=== PATIENT | female | born 1975 | race Caucasian/White ===

== ENCOUNTER 2016-12-02 09:57 | Emergency (ER) | payer BC ==
[~2016-12-02] VITALS: Ht 167.6 cm; Wt 98.4 kg
[~2016-12-02 09:57] MED LIST: ALBUAER INH; FLUT0.15 NAE; HYDR-5688 PO
[2016-12-02 09:59] VITALS: TEMP 37.2; Ht 167.6 cm; Wt 98.4 kg
[2016-12-02] MEDS ORDERED: SODIUM CHLORIDE 0.9% 1000ML 1,000 ML IV STA (10:20)
--- NOTE | 2016-12-02 10:27 | EMERGENCY ROOM VISIT NOTE ---
History Report prepared by Nicole: Renetta Ruiz Under the Supervision of: Dr. Aj Watkins D.O. First contact with patient: 10:11 Chief Complaint: DIZZY Stated Complaint: DIZZY, LOSS OF BALANCE, STOMACH PAINS Nursing Triage Summary: pt c/o feeling dizzy upon waking this am. went to work felt the same went to pcp sent here after they did exam and found abd to be tender on right side. denies any vomiting, feels nauseated History of Present Illness The patient is a 40 year old female who presents to the Emergency Room with complaints of persistent dizziness that began upon waking this morning. She reports around 0500 this morning when she woke up, she immediately felt off balance. She ate breakfast and drank coffee, but they provided no relief. During her shower, she lost her balance and fell and hit her shoulder. She attempted to go to work, but states she was "driving off the road" because she felt so off balance. She was able to remain at work for approximately 40 minutes before she left and went to her doctor's office at [facility]. At her doctors office, she states they noted she was found to be tender in her right abdominal area and was referred to the ED. She denies any recent headache, nausea or vomiting. She complains of tinnitus in both ears. The patient reports she felt totally normal last night before she went to bed. She states the only daily medication she takes is a control pill. Source of History: patient Onset: upon waking this morning Position: other (global) Timing: other (persistent) Associated Symptoms: + abdominal pain, No headache, No nausea, No vomiting Review of Systems See HPI for pertinent positives & negatives. A total of 10 systems reviewed and were otherwise negative. Past Medical & Surgical Medical Problems: (1) Asthma (2) History of pneumonia Social History Smoking Status: Never Smoker Alcohol Use: occasionally Drug Use: none Marital Status: Housing Status: lives with family Occupation Status: employed Current/Historical Medications Scheduled Control Pills ( Control Pills), 1 TAB PO DAILY Ipratropium Hubbard (Ipratropium Hubbard), 1 VIAL NEB QID Ondasetron Odt (Zofran Odt), 4 MG SL Q6H Scheduled PRN Meclizine Hcl (Meclizine Hcl), 1 TAB PO Q8 PRN for Dizziness or Vertigo Miscellaneous Medications Albuterol Sulfate (Proventil Hfa) Allergies Coded Allergies: Penicillins (Verified Allergy, Unknown, 12/02/16) HIVES, SWELLING Clindamycin (Verified Adverse Reaction, Unknown, NAUSEA AND VOMITING, 12/02) Physical Exam Vital Signs Date Time Temp Pulse Resp B/P (MAP) Pulse Ox O2 Delivery O2 Flow Rate FiO2 12/02/16 14:57 16 133/80 12/02/16 12:31 116/74 12/02/16 12:27 56 12 98 12/02/16 12:01 114/79 12/02/16 11:57 54 13 97 12/02/16 11:38 123/66 12/02/16 10:57 61 21 12/02/16 10:45 65 12/02/16 09:59 37.2 74 18 141/94 98 Room Air Physical Exam GENERAL: Patient is awake, alert in no acute distress, patient is resting comfortably and showing no signs of anxiety EYES: The conjunctivae are clear. The pupils are round and reactive. EARS, NOSE, MOUTH AND THROAT: The nose is without any evidence of any deformity. Mucous membranes are moist tongue is midline NECK: The neck is nontender and supple. RESPIRATORY: Normal respiratory effort is noted there is no evidence of wheezing rhonchi or rales CARDIOVASCULAR: Regular rate and rhythm noted there no murmurs rubs or gallops normal S1 normal S2 GASTROINTESTINAL: The abdomen is mildly tender but soft. RUQ and epigastric tenderness to palpation. MUSCULOSKELETAL/EXTREMITIES: There is no evidence of gross deformity full range of motion is noted in the hips and shoulders SKIN: There is no obvious evidence of any rash. There are no petechiae, pallor or cyanosis noted. NEUROLOGIC: Patient is awake alert and oriented x3 strength is symmetric patellar reflexes are 2+ bilaterally. No nystagmus noted. Medical Decision & Procedures ER Provider Diagnostic Interpretation: Radiology results as stated below per my review and radiologist interpretation: ABDOMEN AND PELVIS CT WITH IV AND ORAL CONTRAST CT DOSE: 951.22 mGycm HISTORY: Right-sided abdominal pain. Nausea. Upper abdominal pain. TECHNIQUE: Multiaxial CT images of the abdomen and pelvis were performed following the use of intravenous and oral contrast. A dose lowering technique was utilized adhering to the principles of ALARA. COMPARISON STUDY: Abdomen and pelvis CT 05/21/2011. FINDINGS: Linear densities at the lung bases posteriorly favor subsegmental atelectasis. No pneumoperitoneum. No pneumatosis. No fractures within the visualized osseous structures. The liver, gallbladder, pancreas, spleen, and adrenal glands are unremarkable. No retroperitoneal lymphadenopathy. Scarring and mild atrophy within the right kidney, unchanged. Single cortical calcifications within the kidneys. A few subcentimeter hypodense lesions within the right kidney measuring up to 6 mm. These are too small to characterize. No renal stones or hydronephrosis. Tiny fat-containing umbilical hernia. The bladder, uterus, and bilateral adnexa are unremarkable. No pelvic free fluid. A few colonic diverticula. No bowel wall thickening or obstruction. Normal appendix. IMPRESSION: 1. No bowel wall thickening or obstruction. 2. Normal appendix. 3. A few renal cortical calcifications with mild right renal atrophy. No renal or ureteral calculi. No hydronephrosis. 4. A few colonic diverticula. Electronically signed by: Matthias Duque M.D. 12/02/2016 1:15 PM CHEST ONE VIEW PORTABLE CLINICAL HISTORY: ABDOMINAL PAIN/GI pain COMPARISON STUDY: 03/01/2016 FINDINGS: The bones soft tissues and hemidiaphragms are normal. The cardiomediastinal silhouette is normal. The lungs are clear. The pulmonary vasculature is normal. IMPRESSION: Negative chest. The above report was generated using voice recognition software. It may contain grammatical, syntax or spelling errors. Electronically signed by: Ja To M.D. 12/02/2016 10:[address] CT DOSE: 638.56 mGycm HISTORY: vertigo, sent by PCP for CT TECHNIQUE: Multiaxial CT images of the head were performed without the use of intravenous contrast. Automated exposure control was utilized for this study. A dose lowering technique was utilized adhering to the principles of ALARA. Comparison: None. Findings: The paranasal sinuses and mastoid air cells are clear. The calvarium and skull base are intact. The ventricles and sulci are within normal limits. There is no mass, hematoma, midline shift, or acute infarct. Impression: No acute intracranial abnormality. Electronically signed by: Matthias Duque M.D. 12/02/2016 1:07 PM Laboratory Results 12/02/16 10:30 Red Blood Count 4.61, Mean Corpuscular Volume 92.4, Mean Corpuscular Hemoglobin 30.6, Mean Corpuscular Hemoglobin Concent 33.1, Mean Platelet Volume 10.0, Neutrophils (%) (Auto) 63.0, Lymphocytes (%) (Auto) 30.9, Monocytes (%) (Auto) 5.2, Eosinophils (%) (Auto) 0.5, Basophils (%) (Auto) 0.2, Neutrophils # (Auto) 4.12, Lymphocytes # (Auto) 2.02, Monocytes # (Auto) 0.34, Eosinophils # (Auto) 0.03, Basophils # (Auto) 0.01 12/02/16 10:30 Test 12/02/16 10:30 White Blood Count 6.53 K/uL (4.8-10.8) Red Blood Count 4.61 M/uL (4.2-5.4) Hemoglobin 14.1 g/dL (12.0-16.0) Hematocrit 42.6 % (37-47) Mean Corpuscular Volume 92.4 fL (80-100) Mean Corpuscular Hemoglobin 30.6 pg (25-34) Mean Corpuscular Hemoglobin Concent 33.1 g/dl (32-36) Platelet Count 302 K/uL (130-400) Mean Platelet Volume 10.0 fL (7.4-10.4) Neutrophils (%) (Auto) 63.0 % Lymphocytes (%) (Auto) 30.9 % Monocytes (%) (Auto) 5.2 % Eosinophils (%) (Auto) 0.5 % Basophils (%) (Auto) 0.2 % Neutrophils # (Auto) 4.12 K/uL (1.4-6.5) Lymphocytes # (Auto) 2.02 K/uL (1.2-3.4) Monocytes # (Auto) 0.34 K/uL (0.11-0.59) Eosinophils # (Auto) 0.03 K/uL (0-0.5) Basophils # (Auto) 0.01 K/uL (0-0.2) RDW Standard Deviation 42.1 fL (36.4-46.3) RDW Coefficient of Variation 12.4 % (11.5-14.5) Immature Granulocyte % (Auto) 0.2 % Immature Granulocyte # (Auto) 0.01 K/uL (0.00-0.02) Prothrombin Time 9.9 SECONDS (9.0-12.0) Prothromb Time International Ratio 0.9 (0.9-1.1) Activated Partial Thromboplast Time 24.7 SECONDS (21.0-31.0) Partial Thromboplastin Ratio 1.0 Urine Color YELLOW Urine Appearance CLOUDY (CLEAR) Urine pH 7.0 (4.5-7.5) Urine Specific [place] 1.017 (1.000-1.030) Urine Protein NEG (NEG) Urine Glucose (UA) NEG (NEG) Urine Ketones NEG (NEG) Urine Occult Blood NEG (NEG) Urine Nitrite NEG (NEG) Urine Bilirubin NEG (NEG) Urine Urobilinogen NEG (NEG) Urine Leukocyte Esterase MODERATE (NEG) Urine WBC (Auto) 10-30 /hpf (0-5) Urine RBC (Auto) 0-4 /hpf (0-4) Urine Hyaline Casts (Auto) 1-5 /lpf (0-5) Urine Epithelial Cells (Auto) >30 /lpf (0-5) Urine Bacteria (Auto) 2+ (NEG) Anion Gap 8.0 mmol/L (3-11) Est Creatinine Clear Calc Drug Dose 94.2 ml/min Estimated GFR () 89.0 Estimated GFR (Non- 76.8 BUN/Creatinine Ratio 12.9 (10-20) Calcium Level 9.3 mg/dl (8.5-10.1) Total Bilirubin 0.3 mg/dl (0.2-1) Direct Bilirubin < 0.1 mg/dl (0-0.2) Aspartate Amino Transf (AST/SGOT) 19 U/L (15-37) Alanine Aminotransferase (ALT/SGPT) 25 U/L (12-78) Alkaline Phosphatase 49 U/L (45-117) Troponin I < 0.015 ng/ml (0-0.045) Total Protein 7.4 gm/dl (6.4-8.2) Albumin 3.8 gm/dl (3.4-5.0) Lipase 168 U/L (73-393) Human Chorionic Gonadotropin, Qual NEG (NEG) Laboratory results per my review. Medications Administered Medications (Trade) Dose Ordered Sig/Christi Route Start Time Stop Time Status Last Admin Dose Admin Sodium Chloride 1,000 ml @ 999 mls/hr Q1H1M STAT IV 12/02/16 10:20 12/02/16 11:20 DC 12/02/16 10:20 999 MLS/HR Meclizine HCl (Antivert Tab) 25 mg NOW STAT PO 12/02/16 13:10 12/02/16 13:11 DC 12/02/16 13:16 25 MG ECG Indication: weakness Rate (beats per minute): 65 Rhythm: normal sinus Findings: other (No acute ST segments) Comparison ECG Date: no prior available ED Course 1014: The patient was evaluated in room C5. A complete history and physical examination were performed. 1020: NSS 1000 ml @ 999 mls/hr IV. 1310: Meclizine 25 mg PO. 1450: I reevaluated the patient. She is feeling much better. I discussed her results and discharge instructions and she verbalized complete understanding and agreement. Medical Decision Prior records/ancillary studies reviewed. Triage Nursing notes reviewed. The patient's history was concerning for abdominal pain. Differential diagnosis: Etiologies such as appendicitis, diverticulitis, PUD, biliary pathology, UTI, pancreatitis, obstruction, mesenteric ischemia, aortic pathology, infections, inflammatory bowel disease, renal colic, as well as others were entertained. The patient is a 40-year-old female who presented to the emergency department for an evaluation of disequilibrium. The patient was seen by her primary care physician for these complaints but was found have epigastric abdominal tenderness. Her tenderness was very significant and she was sent to the emergency department for further workup including CAT scan. I discussed the patient's laboratory and radiographic studies with her. She was treated with IV fluids as well as meclizine. She was feeling much better on subsequent reevaluation. The patient's CT of the abdomen did not show any acute abnormality that would explain her pain. The CT the head did not show any acute disease either. I discussed the possible causes of vertigo with the patient. She was encouraged to rest and avoid any strenuous activity. She was also encouraged to call her primary care physician to schedule a follow-up appointment as well as discussed the possibility that she may require an evaluation by an ear nose and throat physician to further evaluate the cause of her vertigo. She was also encouraged to return to the emergency Department immediately if symptoms change worsen or the need arises. Head Trauma GCS Score: 15 Medication Reconcilliation Current Medication List: was personally reviewed by me Blood Pressure Screening Patient's blood pressure: Normal blood pressure Blood pressure disposition: Did not require urgent referral Impression Primary Impression: Vertigo Additional Impression: Epigastric abdominal pain Scribe Attestation The scribe's documentation has been prepared under my direction and personally reviewed by me in its entirety. I confirm that the note above accurately reflects all work, treatment, procedures, and medical decision making performed by me. Departure Information Dispostion Home / Self-Care Prescriptions Meclizine Hcl (MECLIZINE HCL) 25 Mg Tab 1 TAB PO Q8 Y for Dizziness or Vertigo for 10 Days, #30 TAB Prov: Aj Watkins, DO 12/02/16 Ondasetron Odt (ZOFRAN ODT) 4 Mg Tab 4 MG SL Q6H for Nausea, #15 TAB Prov: Aj Watkins, DO 12/02/16 Referrals Beth Garcia (PCP) Patient Instructions ED Abdominal Pain Unkn Cause, ED Vertigo Unspecified, My [facility] Health Problem Qualifiers
[2016-12-02] MEDS ORDERED: ATRINS NEB (10:37)
[2016-12-02] MEDS ORDERED: ALBUAER (10:37)
[2016-12-02] MEDS ORDERED: BCPILLS PO (10:37)
--- NOTE | 2016-12-02 10:42 | DIAGNOSTIC IMAGING REPORT ---
CHEST ONE VIEW PORTABLE CLINICAL HISTORY: ABDOMINAL PAIN/GI pain COMPARISON STUDY: 03/01/2016 FINDINGS: The bones soft tissues and hemidiaphragms are normal. The cardiomediastinal silhouette is normal. The lungs are clear. The pulmonary vasculature is normal. IMPRESSION: Negative chest. The above report was generated using voice recognition software. It may contain grammatical, syntax or spelling errors. Electronically signed by: Ja To M.D. 12/02/2016 10:41 AM Dictated Date/Time: 12/02/2016 10:41 AM
[2016-12-02] MEDS ORDERED: OPTIRAY 320 IV PRN (10:45)
[2016-12-02 10:48] LABS: BASO % 0.2 %; BASO ABS # 0.01 K/uL (0-0.2); COMPLETE YES; EOS % 0.5 %; HEMATOCRIT 42.6 % (37-47); IG% 0.2 %; LYMPH % 30.9 %; LYMPH ABS # 2.02 K/uL (1.2-3.4); MEAN CELL VOLUME 92.4 fL (80-100); MEAN CORPUSCULAR HEMOGLOBIN 30.6 pg (25-34); MEAN CORPUSCULAR HGB CONC 33.1 g/dl (32-36); MONO % 5.2 %; PLATELET COUNT 302 K/uL (130-400); RED BLOOD COUNT 4.61 M/uL (4.2-5.4); WHITE BLOOD COUNT 6.53 K/uL (4.8-10.8)
[2016-12-02 10:52] LABS: URINE APPEARANCE CLOUDY (CLEAR); URINE BILIRUBIN NEG (NEG); URINE COLOR YELLOW; URINE EPITHELIAL CELL AUTO >30 /lpf (0-5); URINE NITRITE NEG (NEG); URINE SPECIFIC GRAVITY 1.017 (1.000-1.030); UROBILINOGEN NEG (NEG)
[2016-12-02 10:56] LABS: ALT/SGPT 25 U/L (12-78); BLOOD UREA NITROGEN 12 mg/dl (7-18); BUN/CREATININE RATIO 12.9 (10-20); CALCIUM 9.3 mg/dl (8.5-10.1); CARBON DIOXIDE 25 mmol/L (21-32); CHLORIDE 108 mmol/L (98-107); CREATININE 0.92 mg/dl (0.60-1.20); GLUCOSE 88 mg/dl (70-99); MANUAL MICROSCOPIC REQUIRED? NO; POTASSIUM 3.8 mmol/L (3.5-5.1); REVIEW REQ? NO; SODIUM 141 mmol/L (136-145)
[2016-12-02 10:57] LABS: INR 0.9 (0.9-1.1); PROTHROMBIN TIME (PATIENT) 9.9 SECONDS (9.0-12.0)
[2016-12-02 11:01] LABS: ALKALINE PHOSPHATASE 49 U/L (45-117); AST/SGOT 19 U/L (15-37)
[2016-12-02 11:15] LABS: PREG INTERNAL NEGATIVE QC NEG CLEAR BACKGROUND; PREG INTERNAL POSITIVE QC POS CONTROL LINE
[2016-12-02 12:27] VITALS: PULSE 56; O2SAT 98
--- NOTE | 2016-12-02 13:09 | DIAGNOSTIC IMAGING REPORT ---
HEAD CT NONCONTRAST CT DOSE: 638.56 mGycm HISTORY: vertigo, sent by PCP for CT TECHNIQUE: Multiaxial CT images of the head were performed without the use of intravenous contrast. Automated exposure control was utilized for this study. A dose lowering technique was utilized adhering to the principles of ALARA. Comparison: None. Findings: The paranasal sinuses and mastoid air cells are clear. The calvarium and skull base are intact. The ventricles and sulci are within normal limits. There is no mass, hematoma, midline shift, or acute infarct. Impression: No acute intracranial abnormality. Electronically signed by: Matthias Duque M.D. 12/02/2016 1:07 PM Dictated Date/Time: 12/02/2016 1:05 PM
[2016-12-02] MEDS ORDERED: MECLIZINE HCL 25 MG TAB PO STA (13:10)
--- NOTE | 2016-12-02 13:16 | DIAGNOSTIC IMAGING REPORT ---
ABDOMEN AND PELVIS CT WITH IV AND ORAL CONTRAST CT DOSE: 951.22 mGycm HISTORY: Right-sided abdominal pain. Nausea. Upper abdominal pain. TECHNIQUE: Multiaxial CT images of the abdomen and pelvis were performed following the use of intravenous and oral contrast. A dose lowering technique was utilized adhering to the principles of ALARA. COMPARISON STUDY: Abdomen and pelvis CT 05/21/2011. FINDINGS: Linear densities at the lung bases posteriorly favor subsegmental atelectasis. No pneumoperitoneum. No pneumatosis. No fractures within the visualized osseous structures. The liver, gallbladder, pancreas, spleen, and adrenal glands are unremarkable. No retroperitoneal lymphadenopathy. Scarring and mild atrophy within the right kidney, unchanged. Single cortical calcifications within the kidneys. A few subcentimeter hypodense lesions within the right kidney measuring up to 6 mm. These are too small to characterize. No renal stones or hydronephrosis. Tiny fat-containing umbilical hernia. The bladder, uterus, and bilateral adnexa are unremarkable. No pelvic free fluid. A few colonic diverticula. No bowel wall thickening or obstruction. Normal appendix. IMPRESSION: 1. No bowel wall thickening or obstruction. 2. Normal appendix. 3. A few renal cortical calcifications with mild right renal atrophy. No renal or ureteral calculi. No hydronephrosis. 4. A few colonic diverticula. Electronically signed by: Matthias Duque M.D. 12/02/2016 1:15 PM Dictated Date/Time: 12/02/2016 1:08 PM
[2016-12-02] MEDS ORDERED: ONDA4TAB10 SL (14:49)
[2016-12-02] MEDS ORDERED: MECL1TAB42 PO (14:49)
[2016-12-02 14:57] VITALS: BP 133/80
== END 2016-12-02 14:58 | disposition home or self-care (01) ==
LOC: C.EDB 09:58 → C.EDC 14:58
DX: R42 Dizziness and giddiness (principal); R10.13 Epigastric pain; J45.909 Unspecified asthma, uncomplicated; Z87.01 Personal history of pneumonia (recurrent); Z79.3 Long term (current) use of hormonal contraceptives

== ENCOUNTER → 2016-12-30 | Outpatient (CLI) | payer BC ==
[~2016-12-30] MED LIST changes: +ALBUAER; -ALBUAER INH; +ATRINS NEB; +BCPILLS PO; -FLUT0.15 NAE; -HYDR-5688 PO; +ONDA4TAB10 SL
== END | disposition home or self-care (01) ==
LOC: C.PAPS 14:08
PROVIDERS: ATTEND Obstetrics & Gynecology
DX: N93.8 Other specified abnormal uterine and vaginal bleeding (principal)

== ENCOUNTER → 2017-08-13 | Outpatient (CLI) | payer OTHER ==
[~2017-08-13] MED LIST changes: -ONDA4TAB10 SL
--- NOTE | 2017-08-13 09:14 | DIAGNOSTIC IMAGING REPORT ---
ULTRASOUND OF THE PELVIS CLINICAL HISTORY: Irregular menses. Pelvic pain. COMPARISON STUDY: Pelvic CT dated 12/02/2016. TECHNIQUE: Real-time, grayscale, and color flow sonography of the pelvis is performed both transabdominally and endovaginally. Images are reviewed in the transverse and longitudinal planes. FINDINGS: Uterus: The uterus is normal in size and echotexture, measuring 8.9 x 4.5 x 4.0 cm. Endometrium: The endometrium is normal in appearance, and the endometrial stripe is normal in thickness measuring up to 0.4 cm. Ovaries: The ovaries are normal in size and morphology. The right ovary measures 2.4 x 1.2 x 2.5 cm and the left ovary measures 3.1 x 1.3 x 2.2 cm. Small bilateral follicles are noted. Normal Doppler waveforms are shown within both ovaries. Pelvis: There is trace free fluid in the cul-de-sac. No concerning adnexal lesion is seen. IMPRESSION: 1. No acute sonographic abnormality is identified in the pelvis. 2. Trace free fluid in the cul-de-sac is likely within physiologic limits. Electronically signed by: Danilo Bedoya M.D. 08/13/2017 9:12 AM Dictated Date/Time: 08/13/2017 8:46 AM
== END | disposition home or self-care (01) ==
LOC: C.ULTR 07:59
PROVIDERS: ATTEND Family Medicine
DX: N93.9 Abnormal uterine and vaginal bleeding, unspecified (principal); R30.0 Dysuria; Z72.51 High risk heterosexual behavior

== ENCOUNTER → 2017-08-20 | Outpatient (CLI) | payer OTHER | END | disposition home or self-care (01) | LOC: C.PATHSPEC 17:21 | PROVIDERS: ATTEND Obstetrics & Gynecology | DX: R87.612 Low grade squamous intraepithelial lesion on cytologic smear of cervix (LGSIL) (principal) ==

== ENCOUNTER → 2017-08-20 | Outpatient (CLI) | payer OTHER | END | disposition home or self-care (01) | LOC: C.PAPS 18:09 | PROVIDERS: ATTEND Obstetrics & Gynecology | DX: N88.9 Noninflammatory disorder of cervix uteri, unspecified (principal) ==